=== PATIENT | female | born 1955 | race Caucasian/White ===

== ENCOUNTER 2017-06-03 11:20 | Emergency (ER) | payer OTHER ==
--- NOTE | 2017-06-03 13:16 | DIAGNOSTIC IMAGING REPORT ---
PROCEDURE: XR ANKLE 3 OR 4 VIEWS - LEFT INDICATION: TRAUMA/INJURY TECHNIQUE: Four views. COMPARISON: None. FINDINGS: Nondisplaced fracture of the lateral malleolus. There is medial displacement of the tibia. IMPRESSION: 1. Lateral malleolar fracture. Medial tibial displacement.
--- NOTE | 2017-06-03 14:09 | ED ORDER SUMMARY ---
..... Patient: DANNY BIRD OrderSheet [facility] VisitID: [id number] [address] [place] [address] 61y, F Registration Date/Time: 06/03/2017 ORDER SHEET Weight: 83.9 kg (stated) Allergies: Codeine, Hydrocodone GENERAL ORDERS: Ankle 3 or 4V Left Urgent (12:03 06/03/2017 DDean R.N. per protocol) (Ack 12:04 PWeiler ER Tech1) (12:12 PWeiler ER Tech1) Splint (LE) (Left) (Short Leg Posterior) (13:36 06/03/2017 Flo BAEZ) (14:18 Sammy R.N.) MEDICATION ORDERS: Morphine IM 5 mg (HIGH ALERT MEDICATION, NOW) (14:06 06/03/2017 Flo BAEZ) (Ack 14:12 Sammy R.N.) (14:30 Sammy R.N.) IV FLUIDS: ORDER SHEET NOTES: [Electronically signed by Michael Fierro R.N. (15:26 06/03/2017)] [Electronically signed by Cristy Crenshaw MD (22:55 06/03/2017)] [Electronically locked/signed by Michael Fierro R.N. (15:26 06/03/2017)]
--- NOTE | 2017-06-03 14:09 | ED NURSING NOTES ---
Clinical Report - Nurses [facility] [address] [place] [address] 06/03/2017 11:21 [id number] TRI[facility] Triage time 11:29. Acuity: LEVEL 4. Chief Complaint: INJURY TO LEFT ANKLE and LEFT FOOT. Alert. NIVIA COMA SCORE: [place] Coma Scale: 15- eyes open spontaneously (4); best verbal response- oriented x 4 (5); best motor response- obeys commands (6). --11:39 Maryam Jefferson R.N. 11:29 06/03/17. BP: 137/79. HR: 73. RR: 18. O2 saturation: 98%. Temp: 98.1 F (oral). Pain level now: 05/04. --11:39 Maryam Jefferson R.N. Weight: 83.9 kg stated. Height/Length: 64 inches Per Patient. BMI: 31.8. --11:37 Maryam Jefferson R.N. Medications FLUoxetine HCl Oral 40 mg, daily. Imitrex Oral, as needed. Topamax Oral 100 mg, daily. --11:32 Maryam Jefferson R.N. TraMADol HCl Oral. --11:32 Maryam Jefferson R.N. Simvastatin Oral. --11:33 Maryam Jefferson R.N. BusPIRone HCl Oral. --11:33 Maryam Jefferson R.N. Methocarbamol Oral. --11:33 Maryam Jefferson R.N. Allergies Codeine.(vomiting) Hydrocodone. (headache) --11:33 Maryam Jefferson R.N. History Arrived by private vehicle. Historian: patient. Unaccompanied. Primary physician (Marian). This occurred (on Saturday). Mechanism of injury: sustained a twisting injury while walking. She has had trouble walking. SOCIAL HX: Never smoker. No alcohol use or drug use. LEARNING NEEDS ASSESSMENT: The learning needs assessment revealed no barriers. FALL RISK ASSESSMENT: Fall risk assessment completed. Risk factors identified include patient history of fall and impairment of mobility. Fall interventions initiated. Patient placed on stretcher. Side rails up x1. Brakes on Bed in low position. FUNCTIONAL ASSESSMENT: Functional assessment performed: independent with the activities of daily living; mobility impairment present- this mobility impairment is an ongoing problem. --11:39 Maryam Jefferson R.N. PROBLEMS: Myofascial Strain. Fall. Contusion. Tetanus Status. Immunizations. Migraine Headache. Degenerative Joint Disease. --11:34 Maryam Jefferson R.N. ADDITIONAL SURGERIES: Breast Biopsy. Cyst removed from left foot. Hysterectomy. Neck Surgery. --11:34 Maryam Jefferson R.N. Assessment GENERAL / NEURO / PSYCH: The patient is awake and alert, is oriented and cooperative and appears uncomfortable. She has good eye contact. RESPIRATORY: Respirations not labored. SKIN: Skin is warm and dry. --11:39 Maryam Jefferson R.N. Interventions ID and allergy band on patient. To treatment room. --11:39 Maryam Jefferson R.N. PHYSICAL ASSESSMENT 11:49 06/03/17. Ambulatory to room. Patient gowned. GENERAL / NEURO / PSYCH: The patient is awake and alert, is oriented and cooperative and appears uncomfortable. She has good eye contact. EXTREMITIES: Pain with weight bearing. Limping gait. SKIN: Skin is warm and dry. Multiple bruises noted on the left ankle and foot. --11:49 Mayram Jefferson R.N. NURSING PROGRESS NOTES 11:49 06/03/17. Call light placed in reach. Side rails up x 1. Bed placed in lowest position. Brakes of bed on. --11:49 Maryam Jefferson R.N. 12:00. Cold pack applied. Extremity elevated. --12:02 Hanh Albrecht R.N. 12:14 06/03/17. ( Port x-ray at bedside to do ankle film). --12:14 Hanh Albrecht R.N. 14:18 making calls to try and get a driver recruiter for discharge. --14:18 Maryam Jefferson R.N. 4 inch gerry bandage applied by [employer]. Stirrup fiberglass lower extremity splint applied to right leg, ankle and foot by tech. Distal pulses intact, sensation intact and motor within normal limits. Patient fit with new crutches. --14:20 Katja Jackson ER Tech1 14:30 06/03/2017 Morphine (Morphine Sulfate (PF)) IM 5 mg given. Given in the left ventral gluteus. Allergies verified, confirmed 5 rights and sedative warning given to the patient. --14:30 Maryam Jefferson R.N. DISPOSITION / DISCHARGE 15:25 06/03/17. Condition at departure: improved. The goals identified in the patient's plan of care were met. No learning barriers present. Discharge instructions provided and reviewed with the patient. Reviewed warnings. Reviewed medication(s). Treatments reviewed. Reviewed referral to an orthopedic surgeon (Pt will follow up with PCP/ortho MD as soon as possible). Patient verbalized understanding. Written instructions provided in Bangladeshi. The patient was discharged by the physician. She was discharged home and accompanied by family. She left the Emergency Department in a wheelchair on crutches and via private vehicle. Family member driving. FALL RISK ASSESSMENT: Fall risk assessment completed. No fall risk identified. --15:25 Michael Fierro R.N. 15:21 06/03/17. BP: 134/78. HR: 81. RR: 14. O2 saturation: 99% on room air. Temp: 97.9 F (oral). --15:25 Michael Fierro R.N. 15:25 06/03/17. Departure time: 15:Jun 03 2017. --15:25 Michael Fierro R.N. Locked/Released at 06/03/2017 15:26 by Michael Fierro R.N.
--- NOTE | 2017-06-03 14:09 | ED CLINICAL REPORT ---
Clinical Report - Physicians/Mid Levels [facility] [address] [place] [address] 06/03/2017 11:21 Patient: DANNY BIRD Time Seen: 12:08. Arrived- By private vehicle. Historian- patient. HISTORY OF PRESENT ILLNESS Chief Complaint: Injury to the left ankle. The injury happened about 3 days ago. Occurred at home. The patient sustained a twisting injury. Patient is experiencing moderate pain. No other injury. REVIEW OF SYSTEMS The patient complains of pain on weight bearing. She has had swelling. No tingling, weakness, numbness, suspected foreign body or skin laceration. All systems otherwise negative, except as recorded above. PAST HISTORY Problems: Tetanus Status. Immunizations. Migraine Headache. Degenerative Joint Disease. Additional Surgeries: Breast Biopsy. Cyst removed from left foot. Hysterectomy. Neck Surgery. Medications: Methocarbamol Oral. BusPIRone HCl Oral. Simvastatin Oral. TraMADol HCl Oral. FLUoxetine HCl Oral 40 mg, daily. Imitrex Oral, as needed. Topamax Oral 100 mg, daily. Allergies: Codeine.(vomiting) Hydrocodone. (headache). SOCIAL HISTORY Never smoker. No alcohol use or drug use. ADDITIONAL NOTES The nursing notes have been reviewed. PHYSICAL EXAM Vital Signs: 06/03/2017 11:29 BP: 137/79. HR: 73. RR: 18. O2 saturation: 98%. Temp: 98.1 F. Pain level now: 05/04. Have been reviewed. Appearance: Alert. Oriented X3. No acute distress. Head: Head atraumatic. Eyes: Pupils equal, round and reactive to light. ENT: Nose normal. Neck: Normal inspection. CVS: Pulses normal. Respiratory: No respiratory distress. Back: ROM normal. Skin: Skin intact. Skin warm and dry. Extremities: Left ankle: moderate tenderness and swelling and medium sized ecchymosis localized to the lateral malleolus. Limited ROM secondary to pain and swelling (diminished plantar flexion, dorsiflexion, inversion and eversion). Neurovascular intact distally. No ligamentous laxity present. No erythema, laceration, abrasion, puncture wound or foreign body. No deformity. No foot injury. Foot and ankle exam otherwise negative. Extremities otherwise negative. Neuro, Vascular and Tendons: Vascular status intact. Sensation intact. Motor intact. Tendon function intact. Gait: Gait not tested due to pain. Neuro: Oriented X 3. No motor deficit. No sensory deficit. LABS, X-RAYS, AND EKG Lt Ankle X-ray: No air in the soft tissue or foreign body. Oblique fracture of the distal left fibula. Soft tissue swelling. (Mildly widened mortise with medial shift of tibia). Views: 3 view ankle series. Technique: good. The X-rays were independently viewed by me, interpreted by the radiologist and contemporaneously by me and discussed with the radiologist. Prior films were not available for comparison. Pulse Oximetry: 06/03/2017 11:29 O2 saturation: 98%. (FIO2 - room air). Interpretation: normal. PROGRESS AND PROCEDURES Splint Application: Short leg and stirrup fiberglass splint applied to left ankle. Splint applied by josé luis with direct supervision by me and the ED physician. Reassessed extremity following splint application. Neurovascular intact. Patient was placed in a bulky Shepherd splint. Course of Care: Patient was worked up for her left ankle injury, and found to have a spiral fracture of the fibula with mild shifting of the tibia and a slightly widened ankle mortise. As such, I did feel she should be placed in a Shepherd splint which would give her both both posterior and mediolateral stability. I informed the patient she would need to be nonweight-bearing and use crutches, and that she would need to follow up with orthopedics. Patient states she has her own orthopedist already with whom she has had recent follow-up for her left shoulder issues, and that she would like to have this orthopedist see her for her ankle as well. Patient was givenanalgesia in the emergency department. Patient counseled in person regarding the patient's stable condition, test results, diagnosis and need for follow-up. Concerns were addressed. Old medical records reviewed. Disposition: Discharged. Condition: stable. CLINICAL IMPRESSION Closed non-displaced left lateral malleolus fracture (with slight mortise widening). No angulated ankle fracture present. INSTRUCTIONS Apply ice for 20 minutes three times a day as needed and until better. Don't apply ice directly to skin and don't use while asleep. Use crutches. Elevate affected areas above chest level as needed and until better. No weight bearing left leg until released. Warnings: SEDATIVE MEDICATION: You were given sedative medication during your visit. Do not drive or operate dangerous machinery. GENERAL WARNINGS: Return or contact your physician immediately if your condition worsens or changes unexpectedly, if not improving as expected, or if other problems arise. Prescription Medications: Oxycodone 5 mg tablets: take 1-2 orally every 6 hours as needed for pain. Dispense thirty (30). No refill. Follow-up: Follow up with an orthopedic surgeon. Call for the next available appointment. Reason for referral: follow up ankle fracture. Understanding of the discharge instructions verbalized by patient. (Electronically signed by Cristy Crenshaw MD 06/03/2017 22:55)
--- NOTE | 2017-06-03 14:09 | ED ORDER SUMMARY ---
..... Patient: DANNY BIRD OrderSheet [facility] VisitID: [id number] [address] [place] [address] 61y, F Registration Date/Time: 06/03/2017 ORDER SHEET Weight: 83.9 kg (stated) Allergies: Codeine, Hydrocodone GENERAL ORDERS: Ankle 3 or 4V Left Urgent (12:03 06/03/2017 DDean R.N. per protocol) (Ack 12:04 PWeiler ER Tech1) (12:12 PWeiler ER Tech1) Splint (LE) (Left) (Short Leg Posterior) (13:36 06/03/2017 Flo BAEZ) (14:18 Sammy R.N.) MEDICATION ORDERS: Morphine IM 5 mg (HIGH ALERT MEDICATION, NOW) (14:06 06/03/2017 Flo BAEZ) (Ack 14:12 Sammy R.N.) (14:30 Sammy R.N.) IV FLUIDS: ORDER SHEET NOTES: [Electronically signed by Michael Fierro R.N. (15:26 06/03/2017)] [Electronically signed by Cristy Crenshaw MD (22:55 06/03/2017)] [Electronically locked/signed by Michael Fierro R.N. (15:26 06/03/2017)]
--- NOTE | 2017-06-03 14:09 | ED NURSING NOTES ---
Clinical Report - Nurses [facility] [address] [place] [address] 06/03/2017 11:21 [id number] TRI[facility] Triage time 11:29. Acuity: LEVEL 4. Chief Complaint: INJURY TO LEFT ANKLE and LEFT FOOT. Alert. NIVIA COMA SCORE: [place] Coma Scale: 15- eyes open spontaneously (4); best verbal response- oriented x 4 (5); best motor response- obeys commands (6). --11:39 Maryam Jefferson R.N. 11:29 06/03/17. BP: 137/79. HR: 73. RR: 18. O2 saturation: 98%. Temp: 98.1 F (oral). Pain level now: 05/04. --11:39 Maryam Jefferson R.N. Weight: 83.9 kg stated. Height/Length: 64 inches Per Patient. BMI: 31.8. --11:37 Maryam Jefferson R.N. Medications FLUoxetine HCl Oral 40 mg, daily. Imitrex Oral, as needed. Topamax Oral 100 mg, daily. --11:32 Maryam Jefferson R.N. TraMADol HCl Oral. --11:32 Maryam Jefferson R.N. Simvastatin Oral. --11:33 Maryam Jefferson R.N. BusPIRone HCl Oral. --11:33 Maryam Jefferson R.N. Methocarbamol Oral. --11:33 Maryam Jefferson R.N. Allergies Codeine.(vomiting) Hydrocodone. (headache) --11:33 Maryam Jefferson R.N. History Arrived by private vehicle. Historian: patient. Unaccompanied. Primary physician (Marian). This occurred (on Saturday). Mechanism of injury: sustained a twisting injury while walking. She has had trouble walking. SOCIAL HX: Never smoker. No alcohol use or drug use. LEARNING NEEDS ASSESSMENT: The learning needs assessment revealed no barriers. FALL RISK ASSESSMENT: Fall risk assessment completed. Risk factors identified include patient history of fall and impairment of mobility. Fall interventions initiated. Patient placed on stretcher. Side rails up x1. Brakes on Bed in low position. FUNCTIONAL ASSESSMENT: Functional assessment performed: independent with the activities of daily living; mobility impairment present- this mobility impairment is an ongoing problem. --11:39 Maryam Jefferson R.N. PROBLEMS: Myofascial Strain. Fall. Contusion. Tetanus Status. Immunizations. Migraine Headache. Degenerative Joint Disease. --11:34 Maryam Jefferson R.N. ADDITIONAL SURGERIES: Breast Biopsy. Cyst removed from left foot. Hysterectomy. Neck Surgery. --11:34 Maryam Jefferson R.N. Assessment GENERAL / NEURO / PSYCH: The patient is awake and alert, is oriented and cooperative and appears uncomfortable. She has good eye contact. RESPIRATORY: Respirations not labored. SKIN: Skin is warm and dry. --11:39 Maryam Jefferson R.N. Interventions ID and allergy band on patient. To treatment room. --11:39 Maryam Jefferson R.N. PHYSICAL ASSESSMENT 11:49 06/03/17. Ambulatory to room. Patient gowned. GENERAL / NEURO / PSYCH: The patient is awake and alert, is oriented and cooperative and appears uncomfortable. She has good eye contact. EXTREMITIES: Pain with weight bearing. Limping gait. SKIN: Skin is warm and dry. Multiple bruises noted on the left ankle and foot. --11:49 Maryam Jefferson R.N. NURSING PROGRESS NOTES 11:49 06/03/17. Call light placed in reach. Side rails up x 1. Bed placed in lowest position. Brakes of bed on. --11:49 Maryam Jefferson R.N. 12:00. Cold pack applied. Extremity elevated. --12:02 Hanh Albrecht R.N. 12:14 06/03/17. ( Port x-ray at bedside to do ankle film). --12:14 Hanh Albrecht R.N. 14:18 making calls to try and get a hazmat tanker driver for discharge. --14:18 Maryam Jefferson R.N. 4 inch gerry bandage applied by [employer]. Stirrup fiberglass lower extremity splint applied to right leg, ankle and foot by tech. Distal pulses intact, sensation intact and motor within normal limits. Patient fit with new crutches. --14:20 Katja Jackson ER Tech1 14:30 06/03/2017 Morphine (Morphine Sulfate (PF)) IM 5 mg given. Given in the left ventral gluteus. Allergies verified, confirmed 5 rights and sedative warning given to the patient. --14:30 Maryam Jefferson R.N. DISPOSITION / DISCHARGE 15:25 06/03/17. Condition at departure: improved. The goals identified in the patient's plan of care were met. No learning barriers present. Discharge instructions provided and reviewed with the patient. Reviewed warnings. Reviewed medication(s). Treatments reviewed. Reviewed referral to an orthopedic surgeon (Pt will follow up with PCP/ortho MD as soon as possible). Patient verbalized understanding. Written instructions provided in Malawian. The patient was discharged by the physician. She was discharged home and accompanied by family. She left the Emergency Department in a wheelchair on crutches and via private vehicle. Family member driving. FALL RISK ASSESSMENT: Fall risk assessment completed. No fall risk identified. --15:25 Michael Fierro R.N. 15:21 06/03/17. BP: 134/78. HR: 81. RR: 14. O2 saturation: 99% on room air. Temp: 97.9 F (oral). --15:25 Michael Fierro R.N. 15:25 06/03/17. Departure time: 15:Jun 03 2017. --15:25 Michael Fierro R.N. Locked/Released at 06/03/2017 15:26 by Michael Fierro R.N.
--- NOTE | 2017-06-03 22:55 | ED MED RECONCILIATION SUMMARY ---
Patient: DANNY BIRD Medication Reconciliation Report [facility] VisitID: [id number] [address] [place] [address] 61y, F Registration Date/Time: 06/03/2017 Weight: 83.9 kg Height/Length: 64 in. BMI: 31.8 ALLERGIES: Codeine, Hydrocodone The patient's Home Medications are listed below: THE FOLLOWING MEDICATIONS NEED TO BE RECONCILED: BusPIRone HCl Oral FLUoxetine HCl Oral 40 mg, daily Imitrex Oral Methocarbamol Oral Simvastatin Oral Topamax Oral 100 mg, daily TraMADol HCl Oral The source(s) of the original Home Medication information: Not obtained. The following Medications were given to the patient in the Emergency Department: Morphine [IM] IM 5 mg, administered: 06/03/2017 2:30:00 PM The following Medications were prescribed to the patient: Oxycodone 5 mg tablets: take 1-2 orally every 6 hours as needed for pain. Dispense thirty (30). No refill. -- Cristy Crenshaw MD
--- NOTE | 2017-06-03 22:55 | ED MED RECONCILIATION SUMMARY ---
Patient: DANNY BIRD Medication Reconciliation Report [facility] VisitID: [id number] [address] [place] [address] 61y, F Registration Date/Time: 06/03/2017 Weight: 83.9 kg Height/Length: 64 in. BMI: 31.8 ALLERGIES: Codeine, Hydrocodone The patient's Home Medications are listed below: THE FOLLOWING MEDICATIONS NEED TO BE RECONCILED: BusPIRone HCl Oral FLUoxetine HCl Oral 40 mg, daily Imitrex Oral Methocarbamol Oral Simvastatin Oral Topamax Oral 100 mg, daily TraMADol HCl Oral The source(s) of the original Home Medication information: Not obtained. The following Medications were given to the patient in the Emergency Department: Morphine [IM] IM 5 mg, administered: 06/03/2017 2:30:00 PM The following Medications were prescribed to the patient: Oxycodone 5 mg tablets: take 1-2 orally every 6 hours as needed for pain. Dispense thirty (30). No refill. -- Cristy Crenshaw MD
--- NOTE | 2017-06-03 22:55 | ED MAR SUMMARY ---
..... Medication Administration Record [facility] [address] [place] [address] Patient: DANNY BIRD Visit ID: [id number] 61y, F Weight: 83.9 kg Height/Length: 64 in BMI: 31.8 ALLERGIES: Codeine, Hydrocodone Given 14:30 06/03/2017 Maryam Jefferson R.N. Medication Administered: MORPHINE [IM] (MORPHINE SULFATE (PF)), Dose: 5 mg IM. Medication Ordered: Morphine IM 5 mg (HIGH ALERT MEDICATION, NOW).
--- NOTE | 2017-06-03 22:55 | ED MAR SUMMARY ---
..... Medication Administration Record [facility] [address] [place] [address] Patient: DANNY BIRD Visit ID: [id number] 61y, F Weight: 83.9 kg Height/Length: 64 in BMI: 31.8 ALLERGIES: Codeine, Hydrocodone Given 14:30 06/03/2017 Maryam Jefferson R.N. Medication Administered: MORPHINE [IM] (MORPHINE SULFATE (PF)), Dose: 5 mg IM. Medication Ordered: Morphine IM 5 mg (HIGH ALERT MEDICATION, NOW).
--- NOTE | 2017-06-03 22:55 | ED DISCHARGE INSTRUCTIONS ---
Patient: DANNY BIRD General Instructions [facility] VisitID: [id number] [place] [address] 61y, F Registration Date/Time: 06/03/2017 Closed non-displaced left lateral malleolus fracture (with slight mortise widening). No angulated ankle fracture present. INSTRUCTIONS Apply ice for 20 minutes three times a day as needed and until better. Don't apply ice directly to skin and don't use while asleep. Use crutches. Elevate affected areas above chest level as needed and until better. No weight bearing left leg until released. Warnings: SEDATIVE MEDICATION: You were given sedative medication during your visit. Do not drive or operate dangerous machinery. GENERAL WARNINGS: Return or contact your physician immediately if your condition worsens or changes unexpectedly, if not improving as expected, or if other problems arise. Prescription Medications: Oxycodone 5 mg tablets: take 1-2 orally every 6 hours as needed for pain. Dispense thirty (30). No refill. Follow-up: Follow up with an orthopedic surgeon. Call for the next available appointment. Reason for referral: follow up ankle fracture. Understanding of the discharge instructions verbalized by patient. ADDITIONAL INFORMATION Fracture:Ankle You have a break (fracture) of the ankle. This causes local pain, swelling and sometimes bruising. A fracture is treated with a splint or cast or special boot. It will take about 4-6 weeks for the fracture to heal. Surgery may be needed to fix severe injuries. Home Care: You will be given a splint, cast or boot to prevent movement at the ankle joint. Unless you were told otherwise, use crutches or a walker and do not bear weight on the injured leg until cleared by your doctor to do so. (Crutches and walkers can be rented at many pharmacies and surgical/orthopedic supply stores). Do not put weight on a splint; it will break. Keep your leg elevated to reduce pain and swelling. When sleeping, place a pillow under the injured leg. When sitting, support the injured leg so it is level with your waist. This is very important during the first 48 hours. Apply an ice pack (ice cubes in a plastic bag, wrapped in a towel) over the injured area for 20 minutes every 1-2 hours the first day. You can place the ice pack directly over the splint/cast. Continue with ice packs 3-4 times a day for the next two days, then as needed for the relief of pain and swelling. Keep the cast/splint/boot completely dry at all times. Bathe with your cast/splint/boot out of the water, protected with a large plastic bag, rubber-banded at the top end. If a boot or fiberglass cast/splint gets wet, you can dry it with a hair-dryer. You may use acetaminophen (Tylenol) or ibuprofen (Motrin, Advil) to control pain, unless another pain medicine was prescribed. [ NOTE : If you have chronic liver or kidney disease or ever had a stomach ulcer or GI bleeding, talk with your doctor before using these medicines.] Follow Up with your doctor in one week, or as advised by our staff, to be sure the bone is healing properly. If you were given a splint, it may be changed to a cast at your follow-up visit. [NOTE: A radiologist will review any X-rays that were taken. We will notify you of any new findings that may affect your care.] Get Prompt Medical Attention If Any Of The Following Occur: The plaster cast or splint becomes wet or soft The fiberglass cast or splint remains wet for more than 24 hours Increased tightness or pain under the cast or splint Toes become swollen, cold, blue, numb or tingly You have been given the following additional information: Fracture, Ankle (General) No weight bearing left leg until released. (Electronically signed by Cristy Crenshaw MD 06/03/2017 22:55)
== END 2017-06-03 15:25 | disposition home or self-care (01) ==
LOC: ED SRH 11:20
DX: S82.65XA Nondisplaced fracture of lateral malleolus of left fibula, initial encounter for closed fracture (principal); X50.1XXA Overexertion from prolonged static or awkward postures, initial encounter; Y93.01 Activity, walking, marching and hiking; Y99.9 Unspecified external cause status; Y92.009 Unspecified place in unspecified non-institutional (private) residence as the place of occurrence of the external cause; Z79.891 Long term (current) use of opiate analgesic; Z79.899 Other long term (current) drug therapy; Z88.5 Allergy status to narcotic agent